=== PATIENT | female | born 1940 | race Caucasian/White ===

== ENCOUNTER 2017-01-06 18:27 | Emergency (ER) | payer OTHER ==
[~2017-01-06] VITALS: Ht 160 cm; Wt 80.8 kg
[~2017-01-06 18:27] MED LIST: PRAVASTATIN SOD40 MG PO; SYNTHROID112 MCG PO
[2017-01-06] MEDS ORDERED: ULTRAM50 MG PO (19:41)
[2017-01-06 20:56] VITALS: BP 123/77
== END 2017-01-06 20:58 | disposition home or self-care (01) ==
LOC: EME 18:27
PROC: 2W38X1Z Immobilization of Right Upper Extremity using Splint (ICD-10-PCS; principal; 2017-01-06)
DX: S52.511A Displaced fracture of right radial styloid process, initial encounter for closed fracture (principal); S00.93XA Contusion of unspecified part of head, initial encounter; E78.5 Hyperlipidemia, unspecified; E03.9 Hypothyroidism, unspecified; W18.30XA Fall on same level, unspecified, initial encounter
CPT/HCPCS: 73110; 99281; 99283

== ENCOUNTER → 2017-01-15 | Outpatient (CLI) | payer MEDICARE, OTHER ==
[~2017-01-15] MED LIST changes: +ULTRAM50 MG PO
== END | disposition home or self-care (01) ==
LOC: CDC 12:02
DX: S52.501D Unspecified fracture of the lower end of right radius, subsequent encounter for closed fracture with routine healing (principal)
CPT/HCPCS: 93000

== ENCOUNTER 2017-01-23 08:31 | Day surgery (SDC) | payer OTHER ==
[~2017-01-23] VITALS: Ht 160 cm; Wt 78.6 kg
[~2017-01-23 08:31] MED LIST changes: +DAILY VALUE1 EACH PO; +FISH OIL 1,0001 EAC7 PO
[2017-01-23] MEDS ORDERED: ASCORBIC ACID500 M3 PO (08:56)
[2017-01-23 08:59] VITALS: BP 185/65
[2017-01-23] MEDS ORDERED: ASPIR 8181 M1 PO (10:00)
[2017-01-23 16:33] LABS: HEMATOCRIT 36.3 % (36.0-46.0); MCHC 32.8 G/DL (30.0-36.0); MCV 88.5 FL (83-99); MEAN PLAT.VOLUME 10.3 uM^3 (9.5-12.4); PLATELET COUNT 195 K/uL (156-360); RBC DIS.WIDTH-CV 11.9 % (11.8-14.6); WHITE BLOOD COUNT 12.4 K/uL (4.1-10.2)
[2017-01-23 17:51] VITALS: BP 128/64
[2017-01-23 20:21] VITALS: BP 129/70
[2017-01-24 00:15] VITALS: BP 102/57
[2017-01-24 04:22] VITALS: BP 110/56
[2017-01-24 06:42] VITALS: BP 102/54
[2017-01-24 12:17] VITALS: BP 111/58
== END 2017-01-24 12:39 | disposition home or self-care (01) ==
LOC: SDC 08:31 → 2SOUTH 11:41 → 2EAST 11:41 → SDC 12:23 → 2EAST 17:14
PROVIDERS: Anesthesiology
PROC: 0PSH04Z Reposition Right Radius with Internal Fixation Device, Open Approach (ICD-10-PCS; principal; 2017-01-23)
DX: S52.571A Other intraarticular fracture of lower end of right radius, initial encounter for closed fracture (principal); E03.9 Hypothyroidism, unspecified; E78.00 Pure hypercholesterolemia, unspecified; Z82.61 Family history of arthritis; Z80.9 Family history of malignant neoplasm, unspecified; W18.09XA Striking against other object with subsequent fall, initial encounter; Y93.01 Activity, walking, marching and hiking; Y92.29 Other specified public building as the place of occurrence of the external cause
CPT/HCPCS: 73110; 76000; 85027; C1713; G0378; J0131; J0690; J1100; J1170; J2405; J2765; J3010; J7120; S0020